=== PATIENT | male | born 1975 | race Caucasian/White ===

== ENCOUNTER 2023-06-12 19:35 | Emergency (ER) | payer MEDICAID, SELFPAY ==
[2023-06-12 19:36] VITALS: BP 145/90; PULSE 69; RESP 18; TEMP 36.7; O2SAT 97; BMI 37.3
--- NOTE | 2023-06-12 20:48 | EDS_ITS ---
HPI History of Present Illness Chief Complaint: Eye Problem Narrative Narrative: 47-year-old male presenting with right eye irritation. He states he was working outside yesterday with the side and thought he might of gotten some dirt in his eye yesterday. States is really bothering yesterday he has been rubbing his eye a bit. Denies wearing contacts. Patient denies any visual blurring. Patient states today it started bothering him in this afternoon he is not really sure why it started bothering him. He states started to get more irritated and is not improving. [facility] Medical History Foreign body, eye Home Medications erythromycin 5 mg/gram (0.5 %) eye ointment 0.5 inch EACH EYE TID #3.5 grams 06/12/23 [Rx Last Taken Unknown] Allergy/AdvReac Type Severity Reaction Status Date / Time No Known Allergies Allergy Verified 06/12/23 19:38 Social History Smoking Status: Unknown if ever smoked ROS ROS ED Constitutional Constitutional ED: Denies chills, fever(s) or sweats Eyes Eyes: Reports other Details: Right eye irritation and erythema ; Denies blurry vision or change in vision ENT ENT ED: Denies ear pain or sore throat Cardiovascular Cardiovascular: Denies chest pain, palpitations or racing heartbeat Respiratory/Chest Respiratory/Chest: Denies cough, dyspnea or sputum Gastrointestinal Gastrointestinal: Denies abdominal pain, constipation, diarrhea, nausea or vomiting Genitourinary Genitourinary ED: Denies dysuria, hematuria or urinary frequency Musculoskeletal Musculoskeletal: Denies arthralgias, myalgias or neck pain Integumentary Denies abscess, Abrasions or rash Neurologic Neurologic: Denies headache(s), paresthesias or weakness Psychiatric Psychiatric: Denies anxiety, depression, suicidal ideation or suicidal thoughts Endocrine Endocrinology: Denies polydipsia or polyuria EXAM Physical Exam Const Vital Signs: 06/12/23 19:36 Temperature 98.0 F Temperature Source Temporal Pulse Rate 69 Respiratory Rate 18 Blood Pressure 145/90 H Blood Pressure Mean 108 Pulse Ox 97 Oxygen Delivery Method Room Air Positive well nourished General Appearance ED: NAD HEENT atraumatic and trauma Eyes PERRL and EOMs intact bilaterally Visual Acuity: acuity normal Periorbital: periorbital findings normal Eyelid: eyelids normal Sclera: sclera abnormal Positive for right Details: scleral injection Details: Positive for diffuse Cornea: cornea abnormal Positive for right Cornea - Right Eye: Positive for edema and fluorescein used Pupil: PERRL Slit Lamp: lids/lashes/lacrimal system Neck no lymphadenopathy MDM MDM MDM Narrative Medical decision making narrative: 47-year-old male presenting with irritation to the right eye. He states it really started today when he thinks he had dirt in his eye yesterday. He said content where. Tetracaine was instilled into the patient's eye and then followed by fluorescein. Examined the right eye and did not see any focal corneal abrasions although certainly is some diffuse erythema and edema. Will start the patient on erythromycin ophthalmic. Have him follow-up with ophthalmology. Impression: 1. Corneal abrasion Discharge Plan Triage Chief Complaint: Eye Problem ED Provider: Iain Mix Dx/Rx/DC Orders Instructions: ED Corneal Abrasion Prescriptions: New erythromycin 5 mg/gram (0.5 %) ointment 0.5 inch EACH EYE TID Qty: 3.5 0RF Primary Care Provider: BARBARA MILES Referrals: BARBARA MILES [Other] Jose Doshi MD [Med Staff - Active Staff] - 3-5 Days Disposition Disposition: Home, Self Care
[2023-06-12] MEDS: Erythromycin Base 1 OPTH.TUBE 1 APPLIC RIGHT EYE (20:53)
[2023-06-12] MEDS: Fluorescein 1 MG STRIP 1 STRIP RIGHT EYE (20:53)
[2023-06-12] MEDS: Tetracaine 0.5% Ophthalmic Bottle 1 DRP RIGHT EYE (20:53)
[2023-06-12 20:54] VITALS: BP 145/90; PULSE 69; RESP 18; TEMP 36.6; O2SAT 97
== END 2023-06-12 21:09 | disposition home or self-care (01) ==
PROVIDERS: Emergency Provider Student in an Organized Health Care Education/Training Program; Visit Provider Student in an Organized Health Care Education/Training Program
DX: S05.01XA Injury of conjunctiva and corneal abrasion without foreign body, right eye, initial encounter (principal); X58.XXXA Exposure to other specified factors, initial encounter; Y92.89 Other specified places as the place of occurrence of the external cause
CPT/HCPCS: 99282